=== PATIENT | male | born 1950 | race Caucasian/White ===

== ENCOUNTER 2017-02-12 10:36 | Day surgery (SDC) | payer OTHER ==
[2017-02-11 15:26] VITALS: BMI 35.6
[2017-02-12] MEDS ORDERED: DEXAMETHASONE SOD PHOSPHATE 4 MG/1 ML VIAL ONE (14:42)
[2017-02-12] MEDS ORDERED: PROPOFOL 20 ML ONE ×2 (14:42)
[2017-02-12] MEDS ORDERED: ceFAZolin SODIUM 1 GM VIAL ONE (14:42)
[2017-02-12] MEDS ORDERED: LIDOCAINE HCL/PF 2% SDV 5ML VIAL ONE (14:42)
[2017-02-12] MEDS ORDERED: MIDAZOLAM HCL 2 MG/2 ML SINGLE DOSE VIAL ONE (14:44)
[2017-02-12] MEDS ORDERED: fentaNYL CITRATE 250 MCG/5 ML VIAL ONE (14:44)
[2017-02-12] MEDS ORDERED: ceFAZolin SODIUM 1 GM VIAL IVPB ONE (15:00)
[2017-02-12] MEDS ORDERED: oxyCODONE HCL 5 MG TABLET PO PRN (15:52)
[2017-02-12] MEDS ORDERED: PROMETHAZINE HCL 25 MG/1 ML VIAL IVPUSH PRN (15:52)
[2017-02-12] MEDS ORDERED: ONDANSETRON 4 MG/2 ML VIAL IVPUSH PRN (15:52)
[2017-02-12] MEDS ORDERED: LACTATED RINGERS SOLUTION 1,000 ML IV SCH (16:00)
[2017-02-12 16:46] VITALS: TEMP 98.2
[2017-02-12 18:21] VITALS: BP 128/77; PULSE 80
--- NOTE | 2017-02-14 10:41 | HP ---
DATE OF ADMISSION: DATE OF DICTATION: 02/12/2017 The patient was admitted to the hospital for prostate vaporization. He does have history of prostatism, including frequency, nocturia, urgency, feelings of incomplete bladder emptying, and persistent microscopic hematuria. He underwent a cystoscopy, recently, which revealed tri-lobar hypertrophy of the prostate. The patient does have high blood pressure, for which he takes losartan and metoprolol. He denies any other surgeries. PHYSICAL EXAMINATION: General: Revealed a well-developed, adult male. Abdomen: Soft. Genitalia: Atraumatic. No hernias or hydroceles were elicited. Testes were normal in size and consistency. Prostate is 3+, smooth, benign, nontender. Extremities: Showed full range of motion with no cyanosis, clubbing or edema. IMPRESSION AT THIS TIME: Benign prostatic hypertrophy, with obstructive uropathy. PLAN: Prostate vaporization. This was explained to patient fully and the possibility of retrograde ejaculation was also explained. Patient accepts. Dada [id number]
--- NOTE | 2017-02-14 10:41 | OP ---
DATE OF OPERATION: 02/12/2017 PREOPERATIVE DIAGNOSIS: BPH. POSTOPERATIVE DIAGNOSIS: BPH. OPERATIVE PROCEDURES: Cystourethroscopy and transurethral vaporization of the prostate. ANESTHESIA: General. Under above-stated anesthesia, patient was prepped and draped in the usual sterile manner. He was placed in the dorsal lithotomy position. The cystoscope introduced under direct vision revealed a normal urethra. Prostatic urethra revealed tri-lobar hypertrophy of the prostate. There was lateral lobe kissing. There was approximately 200 mL of residual urine. There was also a grade 2 trabeculation of the bladder. Using the plasma button, vaporization of the prostate was commenced at the 6 o'clock position of the right lateral lobe. This went on up to the 12 o'clock position. The same thing was done to the left lateral lobe. Lastly, the median lobe was vaporized. No active bleeding was noted. A 20-Trinidadian, 5-cc Garcia was inserted. The patient tolerated the procedure well. He returned to the recovery room in good condition. Dada [id number]
--- NOTE | 2017-02-16 18:42 | PATH ---
Surgical Pathology Report Patient Name: JAYDEN MANLEY [facility]. Rec. #: [id number] /Age/Gender: 1950 (Age: 66) / M Account: [id number] Location: [facility] SURGICAL Taken: 02/12/2017 Received: 02/15/2017 Reported: 02/16/2017 Physicians: Brock Montelongo M.D. Specimen(s) Received PROSTATE TISSUE PARTIAL Clinical History BPH Final Diagnosis PROSTATE TISSUE, PARTIAL, TRANSURETHRAL RESECTION OF THE PROSTATE-VAPORIZATION: PROSTATIC TISSUE WITH MARKED CAUTERY ARTIFACT, ACINAR ATROPHY AND STROMAL HYPERPLASIA. Electronically Signed Indira Broderick M.D. Gross Description Received in formalin labeled "prostate tissue partial," is a 1 g, 2.0 x 1.1 x 0.2 cm aggregate of ramsey soft tissue fragments. The formalin is filtered and the specimen is entirely submitted in one cassette. 02/15/201702/15/2017
== END 2017-02-12 18:34 | disposition home or self-care (01) ==
LOC: JASU-SURG 10:36
PROVIDERS: ATTEND Urology
PROC: 0VT08ZZ Resection of Prostate, Via Natural or Artificial Opening Endoscopic (ICD-10-PCS; principal; 2017-02-12 12:00)
DX: N40.1 Benign prostatic hyperplasia with lower urinary tract symptoms (principal); R31.29 Other microscopic hematuria
CPT/HCPCS: 86850; 86900; 86901; 87086; 88305-TC; 94760

== ENCOUNTER 2017-02-13 23:14 | Emergency (ER) | payer OTHER ==
[2017-02-13 23:38] VITALS: BP 122/84; PULSE 95; TEMP 100.4; BMI 43.6
--- NOTE | 2017-02-14 00:23 | PDOC ---
History of Present Illness - General Chief Complaint: Urinary Catheter Problem Stated Complaint: CATHETER LEAK Time Seen by Provider: 02/13/17 23:21 - History of Present Illness Initial Comments: This 66-year-old man with a history of BPH and "prostate scraping" procedure yesterday presents with leaking around his urinary catheter for the last several hours. Patient states that catheter was placed after his urologist completed the procedure of his prostate, performed for BPH. He had no problems overnight and earlier portion of today but this evening, he noted spillage of urine around the catheter. No significant lower abdominal distention or pain noted. He denies fever/chills, abdominal or flank pain Past History - Past Medical History Allergies/Adverse Reactions: Allergies Allergy/AdvReac Type Severity Reaction Status Date / Time No Known Allergies Allergy Verified 02/11/17 15:44 Home Medications: Ambulatory Orders Allopurinol [Zyloprim -] 100 mg PO DAILY 12/02/14 Amlodipine Besylate 10 mg PO DAILY 12/02/14 Aspirin [ASA -] 81 mg PO DAILY 12/02/14 Atorvastatin Ca [Lipitor] 10 mg PO HS 12/02/14 Losartan Potassium [Cozaar -] 25 mg PO DAILY 12/02/14 Omeprazole 20 mg PO DAILY 12/02/14 Ergocalciferol (Vitamin D2) [Vitamin D2] 50,000 unit PO WEEKLY 02/11/17 Ferrous Sulfate, Dried [Iron] 65 mg PO DAILY 02/11/17 Metoprolol Succinate [Toprol Xl] 50 mg PO DAILY 02/11/17 Cephalexin [Keflex] 500 mg PO TID #21 capsule 02/12/17 Finasteride 5 mg PO DAILY 02/12/17 Oxycodone HCl/Acetaminophen [Percocet 5-325 mg Tablet] 1 combo PO Q4H PRN #1 tablet MDD 4 02/12/17 Tamsulosin HCl 0.4 mg PO DAILY 02/12/17 Anemia: Yes Asthma: No Cancer: No Cardiac Disorders: Yes (AFIB) CVA: No COPD: No CHF: No Dementia: No Diabetes: No GI Disorders: Yes (GERD) Disorders: No HTN: Yes Hypercholesterolemia: Yes Liver Disease: No Seizures: No Thyroid Disease: No - Surgical History Abdominal Surgery: No Appendectomy: No Cardiac Surgery: No Cholecystectomy: No Lung Surgery: No Neurologic Surgery: No Orthopedic Surgery: No - Immunization History Td Vaccination: (UNKNOWN) Immunization Up to Date: No - Suicide/Smoking/Psychosocial Hx Smoking Status: No Smoking History: Never smoked Have you smoked in the past 12 months: No Number of Cigarettes Smoked Daily: 0 Hx Alcohol Use: No Drug/Substance Use Hx: No Substance Use Type: None Hx Substance Use Treatment: No Review of Systems - Review of Systems Able to Perform ROS?: Yes Comments:: 12 point review of systems is negative except for what is noted in the history of present illness *Physical Exam - Vital Signs Last Vital Signs Temp Pulse Resp BP Pulse Ox 100.4 F H 95 H 18 122/84 96 02/13/17 23:21 02/13/17 23:21 02/13/17 23:21 02/13/17 23:21 02/13/17 23:21 - Physical Exam Comments: GENERAL: Adult male, alert and oriented 3, in no acute distress LUNGS: Breath sounds equal, clear to auscultation bilaterally. No wheezes, and no crackles. HEART:Regular rate and rhythm, normal S1 and S2 without murmur, rub or gallop. ABDOMEN:.normal bowel sounds No guarding,tenderness or rebound.No masses No distention. EXTREMITIES: Normal range of motion, no edema. No clubbing or cyanosis. No erythema, or tenderness. NEUROLOGICAL: Cranial nerves II through XII grossly intact. Normal speech. No focal neurological deficits. MUSCULOSKELETAL: Back non-tender to palpation, no CVA tenderness SKIN: Warm, Dry, normal turgor, no rashes or lesions noted. Progress Note - Progress Note Progress Note: This 66-year-old man with indwelling urinary catheter since yesterday when he had an "scraping" procedure performed by his urologist, Dr. Sriram Montelongo, presents with leaking around the catheter this evening. Blood or ultrasound performed by Sánchez Arrington RN: 200 mL of residual urine in bladder. No obvious areas of leakage in the catheter itself. Catheter can be irrigated but will not drain Dr. Montelongo contacted and he spoke to Mrs. Arrington: Catheter should be irrigated with normal saline in case there is clot occluding the catheter. Irrigation with 1 L normal saline performed. Small clot was flushed out and subsequently patient had drainage of 200 mL of pinkish urine. had already planned to see the patient tomorrow in the office. Patient should call in the a.m. to arrange for this meeting. *DC/Admit/Observation/Transfer Diagnosis at time of Disposition: Encounter for urinary catheter - Discharge Dispostion Disposition: HOME Condition at time of disposition: Stable - Referrals Referrals: Bienvenido Christiansen MD [Primary Care Provider] - Brock Montelongo MD [Staff Physician] - 24 hours - Patient Instructions Printed Discharge Instructions: How to Care for Your Garcia Catheter -- Male Additional Instructions: Follow-up with tomorrow Return to ER if you have severe abdominal distention or develop pain in lower abdomen - Post Discharge Activity
--- NOTE | 2017-02-16 18:34 | PATH ---
Cytology Non-Gynecological Report Patient Name: JAYDEN MANLEY [facility]. Rec. #: [id number] /Age/Gender: 1950 (Age: 66) / M Account: [id number] Location: [facility] EMERGENCY R Taken: 02/12/2017 Received: 02/16/2017 Reported: 02/16/2017 Physicians: Brock Montelongo M.D. Specimen(s) Received URINE VOIDED Clinical History None Provided Final Diagnosis URINE FOR CYTOLOGY: SATISFACTORY FOR EVALUATION. NEGATIVE FOR HIGH GRADE UROTHELIAL CARCINOMA. UROTHELIAL CELLS AND SQUAMOUS EPITHELIAL CELLS NOTED. UROTHELIAL FRAGMENTS PRESENT. SEE COMMENT. Comment: Urothelial fragments identified are suggestive of instrumentation, however the cytologic differential diagnosis is lithiasis or a low grade papillary neoplasm. Suggest clinical/radiologic correlation. Electronically Signed Indira Broderick M.D. Gross Description Approximately 50 cc of yellow fluid received fresh. Two cytofunnels prepared.
== END 2017-02-14 00:27 | disposition home or self-care (01) ==
LOC: FER 23:14
DX: T83.098A Other mechanical complication of other urinary catheter, initial encounter (principal); N40.0 Benign prostatic hyperplasia without lower urinary tract symptoms; I48.91 Unspecified atrial fibrillation; D64.9 Anemia, unspecified; K21.9 Gastro-esophageal reflux disease without esophagitis; E78.00 Pure hypercholesterolemia, unspecified; Z79.82 Long term (current) use of aspirin; Y84.6 Urinary catheterization as the cause of abnormal reaction of the patient, or of later complication, without mention of misadventure at the time of the procedure; Y92.9 Unspecified place or not applicable
CPT/HCPCS: 88108; 99282-25

== ENCOUNTER 2022-10-24 18:33 | Emergency (ER) | payer OTHER ==
[2022-10-24 19:06] VITALS: BP 119/84; PULSE 79; RESP 18; TEMP 98.5; BMI 39.7
== END 2022-10-24 21:01 | disposition home or self-care (01) ==
LOC: FER 18:33
DX: M46.1 Sacroiliitis, not elsewhere classified (principal)
CPT/HCPCS: 72170-TC-FY; 99283-25

== ENCOUNTER 2022-11-11 20:54 | Emergency (ER) | payer OTHER ==
[2022-11-11 21:09] VITALS: BP 139/85; PULSE 82; RESP 20; TEMP 98.7; BMI 40.0
[2022-11-11] MEDS ORDERED: DIPHTH,PERTUSS(ACELL),TET 0.5 ML DISP.SYRIN IM ONE ×2 (21:23→21:47)
== END 2022-11-11 22:04 | disposition home or self-care (01) ==
LOC: FER 20:54
PROC: 3E0234Z Introduction of Serum, Toxoid and Vaccine into Muscle, Percutaneous Approach (ICD-10-PCS; principal; 2022-11-11)
DX: S80.212A Abrasion, left knee, initial encounter (principal); W01.198A Fall on same level from slipping, tripping and stumbling with subsequent striking against other object, initial encounter; Y92.34 Swimming pool (public) as the place of occurrence of the external cause
CPT/HCPCS: 90471; 90715; 99282-25

== ENCOUNTER 2022-12-04 09:04 | Emergency (ER) | payer OTHER ==
[2022-12-04 09:13] VITALS: BP 122/78; PULSE 74; RESP 20; TEMP 99.4; BMI 40.0
[2022-12-04] MEDS ORDERED: ACETAMINOPHEN 500 MG TABLET (FP) PO ONE (09:26)
[2022-12-04] MEDS ORDERED: ACETAMINOPHEN 500 MG TABLET (FP) ONE (09:33)
== END 2022-12-04 10:17 | disposition home or self-care (01) ==
LOC: FER 09:04
DX: M25.522 Pain in left elbow (principal); R22.32 Localized swelling, mass and lump, left upper limb; S59.902A Unspecified injury of left elbow, initial encounter; W22.01XA Walked into wall, initial encounter
CPT/HCPCS: 73070-TC-LT-FY; 99283-25

== ENCOUNTER 2024-06-23 18:35 | Inpatient (IN) | payer OTHER ==
[2024-06-23] MEDS: SODIUM CHLORIDE 1,000 ML IV ONE (20:32)
[2024-06-23 20:43] LABS: HEMOGLOBIN 7.3 g/dL (13.7-17.5); MCHC 28.1 g/dl (32.3-36.5); MEAN CELL VOLUME 68.1 fl (79.0-92.2); MEAN PLT VOLUME 9.9 fl (9.4-12.4); PLATELET COUNT 247 x10^3/uL (163-337); RDW 18.5 % (12.2-16.6)
[2024-06-23 20:51] LABS: INR 1.12 (0.83-1.09); PROTHROMBIN TIME (PATIENT) 12.4 SEC (9.7-13.0)
[2024-06-23 21:01] LABS: BILIRUBIN,TOTAL 0.4 mg/dl (0.2-1); CALCIUM 8.8 mg/dl (8.5-10.1); CREATININE 1.8 mg/dl (0.6-1.3); POTASSIUM 4.2 mmol/L (3.5-5.1); TOT PROT 6.1 g/dl (6.4-8.2)
[2024-06-24] MEDS ORDERED: ACETAMINOPHEN 325 MG TABLET (FP) PO PRN (00:30)
[2024-06-24] MEDS ORDERED: DOCUSATE SODIUM 100 MG CAPSULE (FP) PO PRN (00:30)
[2024-06-24] MEDS: ASPIRIN 81 MG CHEWABLE TABLETS PO ONE (00:56)
[2024-06-24 03:31] VITALS: BMI 40.4
[2024-06-24 04:08] LABS: ABSOLUTE IMMATURE GRANULOCYTES 0.03 x10^3/uL (0.0-0.031); BASOPHILS # 0.05 x10^3/uL (0.01-0.08); EOSINOPHIL % 1.7 % (0.8-7.0); EOSINOPHILS # 0.15 x10^3/uL (0.04-0.54); HEMATOCRIT 23.9 % (40.1-51.0); HEMOGLOBIN 6.5 g/dL (13.7-17.5); MCHC 27.2 g/dl (32.3-36.5); MEAN CELL VOLUME 67.9 fl (79.0-92.2); MEAN PLT VOLUME 10.2 fl (9.4-12.4); MONOCYTE % 8.1 % (5.3-12.2); PLATELET COUNT 214 x10^3/uL (163-337)
[2024-06-24 04:15] LABS: INR 1.15 (0.83-1.09); PROTHROMBIN TIME (PATIENT) 12.7 SEC (9.7-13.0)
[2024-06-24 04:27] LABS: POTASSIUM 3.7 mmol/L (3.5-5.1)
[2024-06-24 04:28] LABS: CALCIUM 8.2 mg/dL (8.5-10.1)
[2024-06-24 04:29] LABS: BLOOD UREA NITROGEN 37.4 mg/dL (7-18)
[2024-06-24 04:32] LABS: CREATININE 1.5 mg/dL (0.55-1.3)
[2024-06-24 05:05] LABS: Reticulocyte % 2.46 % (0.51-1.81)
[2024-06-24] MEDS: ALLOPURINOL 300 MG TABLET (FP) PO SCH (09:41)
[2024-06-24] MEDS: FINASTERIDE 5 MG TABLET (FP) PO SCH (09:41)
[2024-06-24] MEDS: ATORVASTATIN CA 10 MG TABLET (FP) PO SCH (21:24)
[2024-06-25 07:52] LABS: HEMATOCRIT 31.8 % (40.1-51.0); HEMOGLOBIN 9.2 g/dL (13.7-17.5); MCHC 28.9 g/dl (32.3-36.5); MEAN CELL VOLUME 71.5 fl (79.0-92.2); MEAN PLT VOLUME 9.8 fl (9.4-12.4); PLATELET COUNT 234 x10^3/uL (163-337); RDW 19.8 % (12.2-16.6)
[2024-06-25 08:14] LABS: ALBUMIN 4.3 g/dl (3.4-5.0); BILIRUBIN,TOTAL 1.1 mg/dl (0.2-1); CALCIUM 9.1 mg/dl (8.5-10.1); CREATININE 0.9 mg/dl (0.6-1.3); MAGNESIUM 1.9 mg/dL (1.8-2.4); PHOSPHOROUS 3.7 (2.5-4.9); POTASSIUM 4.6 mmol/L (3.5-5.1); TOT PROT 6.4 g/dl (6.4-8.2)
[2024-06-25] MEDS ORDERED: METOPROLOL TARTRATE 50 MG TABLET (FP) PO SCH (11:30)
[2024-06-25] MEDS ORDERED: FERRIC CARBOXYMALTOSE 750 MG in SODIUM CHLORIDE 250 ML IVPB ONE (11:52)
[2024-06-25] MEDS: amLODIPine BESYLATE 5 MG TABLET (FP) PO SCH (12:33)
[2024-06-25] MEDS: IRON SUCROSE INJECTION 200 MG in SODIUM CHLORIDE 100 ML IVPB ONE (12:33)
[2024-06-25 14:39] VITALS: BP 126/85; PULSE 78; RESP 18; TEMP 97.7
== END 2024-06-25 16:39 | disposition home or self-care (01) | DRG 812 ==
LOC: FER 18:35 → FM/S 06-24 00:32
PROVIDERS: ADMIT Internal Medicine
DX: D64.9 Anemia, unspecified (principal); N17.9 Acute kidney failure, unspecified; I10 Essential (primary) hypertension; E78.5 Hyperlipidemia, unspecified
CPT/HCPCS: 36415; 36430; 70450-TC; 71046-TC-FY; 72131-TC; 80048; 80053; 80061; 81003; 82607; 82728; 82746; 83036; 83540; 83550; 83615; 83735; 84100; 84443; 84484; 85025; 85610; 85730; 86850; 86900; 86901; 86922; 93005; 99285-25; J1756; P9058